=== PATIENT | male | born 1970 | race Caucasian/White ===

== ENCOUNTER → 2017-10-11 | Outpatient (CLI) | payer OTHER ==
[~2017-10-11] MED LIST: ACETAMINOPHEN325 M3 PO; ANORO ELLIPTA1 EACH INH; BACTROBAN CREAM30 G1 TOP; COLACE100 MG PO; DOXYCYCLINE 10100 MG PO; KEFLEX500 M1; MINOCYCLINE HC100 M2 PO; MIRALAX17 GM PO; NORCO 10-325 T1 EACH PO
== END ==
LOC: M.ULTRA 15:36
DX: R19.04 Left lower quadrant abdominal swelling, mass and lump (principal)

== ENCOUNTER 2017-12-02 19:53 | Inpatient (IN) | payer OTHER ==
[~2017-12-02] VITALS: Ht 182.9 cm; Wt 89.8 kg
[~2017-12-02 19:53] MED LIST changes: -ANORO ELLIPTA1 EACH INH; -DOXYCYCLINE 10100 MG PO; -KEFLEX500 M1
[2017-12-02 20:06] VITALS: BP 103/73
[2017-12-02] MEDS ORDERED: KEFLEX500 M1 (20:12)
[2017-12-02 21:05] LABS: ABSOLUTE BASOPHILS 0.1 thou/uL (0.0-0.2); ABSOLUTE LYMPHOCYTES 1.4 thou/uL (0.8-5.3); ABSOLUTE MONOCYTES 0.7 thou/uL (0.0-1.2); ABSOLUTE NEUTROPHILS 8.3 thou/uL (1.6-8.1); BASOPHILS 0.7 %; EOSINOPHILS 0.3 %; HEMATOCRIT 41.7 % (42.0-52.0); HEMOGLOBIN 14.4 gm/dL (14.0-18.0); LYMPHOCYTES 13.2 %; MCH 30.4 pg (26.0-34.0); MCHC 34.6 g/dL (28.0-37.0); MCV 87.9 fL (80.0-100.0); MONOCYTES 6.4 %; MPV 8.1 fl. (7.2-11.1); NUCLEATED RBCS 0 /100WBC; PLATELET COUNT* 170 thou/uL (150-400); POLYS 79.4 %; RBC 4.75 mil/uL (4.50-6.00); RDW-CV 16.2 % (10.5-14.5); WBC 10.5 thou/uL (4.0-11.0)
[2017-12-02 21:15] LABS: ANION GAP 10 mmol/L (7-16); BUN 14 mg/dL (7-18); CHLORIDE 99 mmol/L (98-107); CO2 23 mmol/L (21-32); CREATININE 1.3 mg/dL (0.6-1.3); GLUCOSE 121 mg/dL (70-99); INR 1.1; POTASSIUM 4.2 mmol/L (3.5-5.1); PROTIME 10.5 Seconds (9.20-11.50); SODIUM 132 mmol/L (136-145)
[2017-12-02 21:25] LABS: ALBUMIN 3.6 g/dL (3.4-5.0); ALKALINE PHOSPHATASE 82 U/L (46-116); LIPASE 116 U/L (73-393); NT-PRO BRAIN NAT PEPTIDE 115 pg/mL (<300); SGOT 34 U/L (15-37); SGPT 21 U/L (30-65); TOTAL BILIRUBIN 0.3 mg/dL (<0.1-1.0); TOTAL PROTEIN 7.2 g/dL (6.4-8.2); TROPONIN-I LEVEL <0.06 ng/mL (<0.06)
--- NOTE | 2017-12-02 22:38 | NUR ---
THIS NURSE DID NOTIFY DR. MCNAMARA THAT THE PATIENT WAS POSITIVE FOR SEPSIS SCREENING. INFORMED HE IS BEING ADMITTED FOR SEPSIS AND PNEUMONIA. WHEN ASKED FOR SEVERE SEPSIS INDICATED ON THE SEPSIS SCREENING TOOL, WAS INFORMED THAT THE FLOOR NURSE WOULD NEED TO SPEAK TO THE HOSPITALIST FOR THOSE ORDERS.
[2017-12-02 22:59] VITALS: BP 108/64
[2017-12-02 23:10] VITALS: BP 94/53
[2017-12-02] MEDS ORDERED: ANORO ELLIPTA1 EACH INH (23:36)
[2017-12-03 04:00] VITALS: BP 95/53
--- NOTE | 2017-12-03 05:26 | NUR ---
PT ADMITTED TO ROOM 207 FROM ER. PT MOVED SELF TO HOSPITAL BED. O2 2L BNC INTACT. TELEMETRY PACK APPLIED AND ALARMS SET. PT ORIENTED TO ROOM, CALL SYSTEM, BED CONTROLSAND TV CONTROLS. PT VERBALIZED GOOD UNDERSTANDING. TEMP DECREASED TO 99.0, PT STATED HE FELT SOME BETTER. PT BECOMES SOB WITH EXERTION. INSTRUCTED PT TO USE URINAL TONIGHT AND PT AGREED. VSS AND NO ACUTE CHANGES DURING SHIFT WILL CONTINUE TO MONITOR
[2017-12-03 08:16] VITALS: BP 97/61
[2017-12-03 15:35] VITALS: BP 98/57
--- NOTE | 2017-12-03 15:49 | NUR ---
Pt is A&O. Resides at home alone. Independent with ADLs, continues to work. No DME. Pt had HH arranged during last dc with [facility], but HH did not see Pt d/t not being homebound. No hx of SNF. Hx of outpt wound care. Pt's goal is to return home at dc. Following for disposition.
--- NOTE | 2017-12-03 17:06 | NUR ---
ASSUMED CARE OF PATIENT AFTER REPORT THIS MORNING. PATIENT AWAKE, ALERT, AND ORIENTED APPROPRIATELY. PHYSICAL ASSESSSMENT COMPLETED AND CHARTED. NO COMPLAINTS OF PAIN. GIVEN SCHEDULED MEDICATIONS, SEE EMAR FOR DOCUMENTATION. VITAL SIGNS STABLE. OXYGEN SATURATION WITHIN NORMAL LIMITS ON ROOM AIR. PATIENT TRANSFERS AND AMBULATES WITH ASSISTANCE FROM STAFF. USES CALL LIGHT APPROPRIATELY. DENIES NEEDS AT THIS TIME. CALL LIGHT WITHIN REACH. NURSING WILL CONTINUE TO MONITOR.
--- NOTE | 2017-12-03 17:18 | EKG ---
[place] [address] ELECTROCARDIOGRAM REPORT Name: JATIN CANELA Room: [address] ADM IN M.R.#: [id number] Admission: 12/02/17 Attend Phys: Musa Chapman MD Discharge: Date of : 72 Report #: [id number] THIS REPORT FOR: //name// [facility] ED Test Date: 2017-12-02 Test Time: 21:37:40 Pat Name: JATIN CANELA Department: Room: [facility] Gender: M Roving Tester Laboratory: JESSI : 1970 Requested By: Christ Shah Order Number: [id number] MD: Ilan Jewell Measurements Intervals Watkins Rate: 102 P: 53 MA: 144 QRS: -11 QRSD: 76 T: 31 QT: 314 QTc: 409 Interpretive Statements Sinus tachycardia Low voltage, extremity leads No previous ECG available for comparison Electronically Signed On 12-03-2017 17:18:17 CDT by Ilan Jewell [email or web address] <ELECTRONICALLY SIGNED> By: Ilan Jewell MD, [facility] 12/03/17 1718 2137 36 Ilan Jewell MD, FACC /EPI
[2017-12-03 19:15] VITALS: BP 95/57
[2017-12-04] VITALS: BP 101/57
[2017-12-04 04:53] LABS: ABSOLUTE EOSINOPHILS 0.1 thou/uL (0.0-0.7); ABSOLUTE LYMPHOCYTES 1.5 thou/uL (0.8-5.3); ABSOLUTE MONOCYTES 0.7 thou/uL (0.0-1.2); ABSOLUTE NEUTROPHILS 3.8 thou/uL (1.6-8.1); BASOPHILS 0.4 %; EOSINOPHILS 1.3 %; MCH 30.1 pg (26.0-34.0); MCHC 33.9 g/dL (28.0-37.0); MCV 88.8 fL (80.0-100.0); MONOCYTES 11.5 %; MPV 8.3 fl. (7.2-11.1); NUCLEATED RBCS 0 /100WBC; PLATELET COUNT* 123 thou/uL (150-400); POLYS 62.8 %; RDW-CV 16.2 % (10.5-14.5)
--- NOTE | 2017-12-04 04:53 | NUR ---
AAOX4 RESP REG AND UNLABORED SKIN W/D NO AUTE DITRESS NOTED. O2 2L BNC INTACT. PT STATES HE FEELS SOME BETTER TONIGHT. VSS AND NO ACUTE CHANGES DURIGN SHIFT. NO SIGNIFICANT FEVER NOTED THIS SHIFT. WILL CONITNUE TO MONITOR
[2017-12-04 05:04] LABS: HEMOGLOBIN 10.8 gm/dL (14.0-18.0)
[2017-12-04 05:05] LABS: CALCIUM 7.9 mg/dL (8.5-10.1); CREATININE 0.8 mg/dL (0.6-1.3); POTASSIUM 3.7 mmol/L (3.5-5.1)
[2017-12-04 08:25] VITALS: BP 106/64
--- NOTE | 2017-12-04 11:41 | NUR ---
ASSUMED CARE OF PATIENT AFTER REPORT THIS MORNING. PATIENT AWAKE, ALERT, AND ORIENTED APPROPRIATELY. PHYSICAL ASSESSMENT COMPLETED AND CHARTED. VITAL SIGNS STABLE. OXYGEN SATURATION WITHIN NORMAL LIMITS ON 2 LPM PER NASAL CANULA. GIVEN SCHEDULED MEDICATIONS, SEE EMAR FOR DOCUMENTATION. PATIENT IS UP WITH STANDBY ASSISTANCE. USES CALL LIGHT APPROPRIATELY. RECEIVED ORDERS TO TRANSFER PATIENT TO MED/SURG ROOM 106. REPORT CALLED AND GIVEN TO DONNA JAMISON. WILL GATHER BELONGINGS AND TRANSFER PATIENT SHORTLY. NURSING WILL CONTINUE TO MONITOR.
--- NOTE | 2017-12-04 12:00 | NUR ---
ASSUMED CARE OF PATIENT AT THIS TIME. AGREE WITH PREVIOUS ASSESSMENT. PATIENT DENIES PAIN. O2 AT 2L. IVF AND IVABX INFUSING ORDERED. PATIENT WISHES TO BE TO BE UP AD CHASITY. PATIENT APPEARS STEADY IN FEET. CALL LIGHT WITHIN REACH. WILL CONTINUE TO MONITOR.
--- NOTE | 2017-12-04 12:09 | NUR ---
TRANSFERRED PATIENT TO ROOM 106 AT 1200. BELONGINGS AND CHART TAKEN WITH PATIENT.
[2017-12-04 15:53] VITALS: BP 100/65
--- NOTE | 2017-12-04 16:34 | NUR ---
PATIENT REMAINS ALERT AND ORIENTED. DENIES PAIN. REPORTS IMPROVEMENT IN SOB WITH EXERTION. O2 REMAINS AT 2L, SAT 954%. TOLERATING MEALS. BM THIS AFTERNOON. UP AD CHASITY. IVF INFUSING ORDERED. AFEBRILE. DENIES FURTHER NEEDS AT THIS TIME. CALL LIGHT WITHIN REACH. WILL CONTINUE TO MONITOR.
--- NOTE | 2017-12-04 20:18 | CON ---
[address] [address] CONSULTATION Name: JATIN CANELA Room: [address] IN ..#: [id number] Admission: 12/02/17 Attend Phys: Musa Chapman MD Discharge: Date of : 72 Report #: [id number] THIS REPORT FOR: //name// CC: Musa Booker DATE OF SERVICE: 12/03/2017 CONSULTATION: Infectious diseases. HISTORY OF PRESENT ILLNESS: The patient is a 47-year-old white male who has a history of MRSA furuncle in 2016. He has had developing a follicular type lesion in his left inguinal area. About a week ago, he saw Dr. Vigil who did an incision and drainage and culture. He was given an antibiotic. The patient thought the antibiotic was not helping, so he had the antibiotic changed. Beginning around 12/02, The patient started having fevers and chills. He measured temperature at home of 104.7. He was having shaking chills and rigors. He had been developing back pain for the last 4 to 5 days. This was a diffuse discomfort throughout the spine and radiating on both sides of the sacrum. The patient presented to the hospital where temperature of 103 was documented. He was admitted to the hospital and started on antibiotic. Infectious disease consultation was requested. PAST MEDICAL HISTORY: Significant for previous MRSA infection. The patient has history of COPD associated with tobacco overuse. He has a history allergy to PENICILLIN and SULFA. FAMILY HISTORY: Noncontributory. SOCIAL HISTORY: The patient is . He lives by himself. He does smoke cigarettes about a pack and a half per day. Denies use of significant alcohol. He works doing sales mostly at a desk. REVIEW OF SYSTEMS: GENERAL: Fevers, chills, and sweats for 24 hours. ENT: No headache, sinus congestion, cognitive dysfunction. The patient denies trouble with his eyes, ears or nose. No sore throat or trouble swallowing. No dental complaints. NECK: The patient denies any pain in his neck. BACK: He has the diffuse back pain. The patient has a cough with some dyspnea with exertion. CARDIOVASCULAR: No chest pain. He denies angina, syncope, palpitations. GASTROINTESTINAL: The patient denies nausea, vomiting or abdominal pain. He notes he has not had a BM for about 3 days. His bowel is a [place]ended, [place] [address] CONSULTATION Name: JATIN CANELA Room: [address]#: [id number] Admission: 12/02/17 Attend Phys: Musa Chapman MD Discharge: Date of : 72 Report #: [id number] not tender. GENITOURINARY: No complaints. EXTREMITIES: No complaints. The area that Dr. Vigil resected and drained has not really caused him any problems at that site. PHYSICAL EXAMINATION: GENERAL: The patient appears his stated age, alert, oriented, comfortable, not in any distress. VITAL SIGNS: Show temperature tonight was measured 99.4, in the ER measured 103 last night. SKIN: Shows healing area on his left groin. It is re-epithelialized without any drainage. There is no surrounding cellulitis nor fluctuance. ENT: Negative. MENTAL STATUS: Normal. NECK: Supple. CARDIOVASCULAR: Heart sounds S1, S2, without murmur. LUNGS: Clear. ABDOMEN: Belly soft, not tender, without mass, no organomegaly. EXTREMITIES: Unremarkable. LABORATORY DATA: White count is 10.5, hemoglobin 14.4. Electrolytes normal. BUN 14, creatinine 1.3. Liver function tests are normal. IMAGING DATA: MRI of the back was done. It showed unusual diffuse areas of inconsistency with irregular peripherally-enhancing lesions in the lumbar and thoracic spine. The radiologist was concerned this could represent multifocal bone marrow abscesses. IMPRESSION: High fever with abnormal bone marrow scan and history of Methicillin-resistant Staphylococcus aureus. I would like to have Dr. Vigil review the surgical site and relay the results of the surgical cultures. We will continue the vancomycin and Levaquin pending results of blood cultures. I have not seen the MRI images, but the description sounds very unusual for abscesses. Particularly, in the patient who was basically healthy a week ago, it would be rather surprising to have multiple bone marrow abscesses in the thoracic and lumbar spine. If this continues to be concern, we would consider a bone marrow biopsy. It is possible that there might be a lesion in the iliac wing that would be amenable to percutaneous aspiration and histopathology. I would like to check an HIV just because this would be a very unusual presentation for infection. We will await results of cultures of the blood. The chest x-ray showed increased basilar markings suggesting possible acute interstitial pneumonitis. We should do a followup film tomorrow for this as well. [address] [address] CONSULTATION Name: JATIN CANELA Room: M.106-P ADM IN M.R.#: [id number] Admission: 12/02/17 Attend Phys: Musa Chapman MD Discharge: Date of : 72 Report #: [id number] I will continue the vancomycin and Levaquin. Await results of cultures. We will consider doing bone marrow biopsy. <ELECTRONICALLY SIGNED> By: Jatin Valdez MD 12/04/172017 2251 [id number] Valdez MD /nt
[2017-12-04 21:15] VITALS: BP 102/63
--- NOTE | 2017-12-05 06:08 | NUR ---
PATIENT ALERT AND ORIENTED X 4. VITALS STABLE. ON 2L OF OXYGEN. STATES HE DOESNT FEEL SHORT OF BREATH WITH AMBULATION. FLUIDS INFUSING PER ORDER. VOIDING PER URINAL. NPO. HOURLY ROUNDS. NURSING WILL CONTINUE TO MONITOR.
[2017-12-05 07:17] VITALS: BP 102/63
[2017-12-05 08:22] VITALS: BP 107/57
[2017-12-05 10:37] LABS: ANISOCYTOSIS 1+; PLATELET ESTIMATE ADEQUATE; POIKILOCYTOSIS 1+
[2017-12-05 17:02] VITALS: BP 112/60
--- NOTE | 2017-12-05 19:01 | NUR ---
PT VSS THIS SHIFT. PT WALKING THE HALLS THIS SHIFT AND TOLERATING RA. PT WENT FOR BIOPSY, MULTIPLE ATTEMPTS. TRANSPARENT DRESSING IS CDI AT THIS TIME, 2 SITES ARE VISIBLE. PT TOLERATING DIET AT THIS TIME AND ABLE TO AMBULATE AD CHASITY.
[2017-12-05 20:45] VITALS: BP 119/71
[2017-12-06 05:09] LABS: ABSOLUTE EOSINOPHILS 0.2 thou/uL (0.0-0.7); ABSOLUTE LYMPHOCYTES 1.7 thou/uL (0.8-5.3); ABSOLUTE MONOCYTES 0.7 thou/uL (0.0-1.2); ABSOLUTE NEUTROPHILS 2.8 thou/uL (1.6-8.1); BASOPHILS 0.5 %; EOSINOPHILS 3.3 %; HEMATOCRIT 34.2 % (42.0-52.0); HEMOGLOBIN 11.5 gm/dL (14.0-18.0); LYMPHOCYTES 31.4 %; MCH 29.7 pg (26.0-34.0); MCHC 33.4 g/dL (28.0-37.0); MONOCYTES 13.2 %; MPV 7.8 fl. (7.2-11.1); NUCLEATED RBCS 1 /100WBC; PLATELET COUNT* 163 thou/uL (150-400); POLYS 51.6 %; RBC 3.85 mil/uL (4.50-6.00); RDW-CV 16.2 % (10.5-14.5); WBC 5.4 thou/uL (4.0-11.0)
--- NOTE | 2017-12-06 05:56 | NUR ---
PATIENT ALERT AND ORIENTED X 4. VITALS STABLE. RA. UP INDEPENDENTLY. PAIN CONTROLLED WITH PO MEDICATION. PROGRESSING WELL TOWARD DISCHARGE GOALS. FLUIDS INFUSING PER ORDER. HOURLY ROUNDS. NURSING WILL CONTINUE TO MONITOR.
[2017-12-06 08:00] VITALS: BP 98/62
[2017-12-06] MEDS ORDERED: DOXYCYCLINE 10100 MG PO (14:02)
[2017-12-06 14:10] VITALS: BP 98/62
--- NOTE | 2017-12-06 15:05 | NUR ---
PATIENT DISCHARGED TO HOME. DISCHARGE PAPERS REVIEWED AND SIGNED. PRESCRIPTION CALLED TO PHARMACY AND INFORMATION SHEETS GIVEN. IV REMOVED. DEMETRICE INSTRUCTED TO FOLLOW-UP FOR BIOPSY RESULTS. PATIENT DENIES ANY FURTHER NEEDS. PATIENT TAKEN AMBULATORY TO EXIT. LEFT BY OWN VEHICLE.
--- NOTE | 2017-12-25 09:14 | PATH ---
[address] [address] PATHOLOGY RPT PROCEDURE Name: JATIN NAPIER Room: [address] IN M.R.#: [id number] Admission: 12/02/17 Date of : 72 Discharge: 12/06/17 Report #: [id number] Path Case #: [id number] [facility] Accession Number: [id number] . 01 Material submitted: . PART A: BONE MARROW BIOPSY PART B: BONE MARROW ASPRIATE SLIDES PART C: PERIPHERAL SMEAR . 01 Clinician provided ICD-10: 324.1 . 01 Clinical history: . 47-year-old man with anemia, thrombocytopenia and sepsis. . 02 Diagnosis: Bone marrow aspirate, biopsy, cell clot and peripheral blood: - Peripheral blood with mild normocytic anemia and mild thrombocytopenia. - Hypercellular bone marrow with diffuse small mature lymphoid population and decreased trilineage hematopoiesis (see comment). [facility]/12/12/2017 . 02 Comment: Overall the bone marrow is hypercellular for the patient's age with a diffuse small mature lymphoid population and decreased trilineage hematopoiesis. The lymphoid cells are predominantly T-cells with no atypical morphologic findings or immunophenotypic aberrancies. There is no diagnostic evidence of lymphoma or a lymphoproliferative process. Bone marrow lymphoid aggregates can be seen with collagen vascular diseases, other immune or inflammatory disorders, drug therapy and infections (primarily viral). Lymphoid aggregates can also be seen in patients with myelodysplasia and chronic myeloproliferative neoplasms. This small bone marrow core biopsy may not be sales representative public [employer] of the overall bone marrow. The case is co-reviewed with Dr. Andreina Elizabeth. (CLW:nolan 12/12/2017) . 02 Electronically signed: . Yu Borjas MD, Pathologist NPI- [id number] . 01 Gross description: . Received in formalin labeled "Jatin Napier BM core," is a single needle core of loving bone measuring 0.7 cm in length and 0.2 cm in diameter. The specimen is submitted entirely in cassette A1, following decalcification. (TSD; 12/05/2017) TOB/TOB . 02 Microscopic: [place] [address] PATHOLOGY RPT PROCEDURE Name: JATIN NAPIER Room: [address] IN M.R.#: [id number] Admission: 12/02/17 Date of : 72 Discharge: 12/06/17 Report #: [id number] Path Case #: [id number] CBC Data (12/05/17): WBC 6,000 /uL, RBC 3.60, hemoglobin 10.8 g/dL, hematocrit 32.0%, MCV 88.8 fL, MCH 30.1 pg, MCHC 33.9 g/dL, RDW 16.2%, and platelet count 123,000 /uL. White blood cell differential: segs 58%, bands 1%, lymphs 30%, monos 9%, and eos 2%. . Peripheral Blood Smear: Cytomorphological examination of the Bañuelos's stained peripheral blood smear confirms the provided data. Red blood cells show mild normocytic anemia with no significant anisopoikilocytosis. White blood cells are predominantly segmented neutrophils with mild reactive changes. There is no significant dyspoiesis or significant left shift. Lymphocytes are predominantly small, round, and mature appearing with condensed chromatin and scant cytoplasm with admixed large granular lymphocytes. On scanning, no markedly atypical lymphoid cells are seen. Monocytes are mature. Platelets are adequate (mildly decreased) in number and mainly normal in morphology with rare larger platelets noted. . Aspirate Smears: Cytomorphological examination of the Bañuelos's stained aspirate smears shows predominantly blood and peripheral blood elements. A small possible spicule composed predominantly of histiocytes is noted. . Cytomorphological examination of the Bañuelos's stained touch imprints show predominantly small round and mature appearing lymphocytes with condensed chromatin and scant cytoplasm. Only very rare other hematopoietic progenitor cells are identified. . Core Biopsy: The decalcified bone marrow core biopsy is small but adequate. Significant aspiration artifact is noted. The bone marrow appears hypercellular with an overall cellularity of 90-100%. Trilineage hematopoiesis is markedly decreased. The bone marrow is replaced by lymphoid aggregates showing significant crush artifact. The lymphocytes appear mature with condensed chromatin and scant cytoplasm. The myeloid to erythroid ratio, myeloid maturation and erythroid maturation cannot be accurately evaluated. No markedly atypical lymphoid cells are seen. Hui trabeculae and blood vessels are unremarkable. . To confirm the flow cytometry findings and to identify cells in a tissue architectural context, properly controlled immunohistochemical stains and special stains are performed. . Block A1 CD3 - lymphocytes diffusely reactive CD20 - stains occasional admixed B cells PAX5 - stains occasional admixed B cells CD30 - essentially nonreactive CD5 - diffusely reactive CD4 - normal CD4/8 [place] [address] PATHOLOGY RPT PROCEDURE Name: JATIN NAPIER Room: [facility] IN M.R.#: [id number] Admission: 12/02/17 Date of : 72 Discharge: 12/06/17 Report #: [id number] Path Case #: [id number] CD8 - normal CD4/8 ratio CD7 - diffusely reactive, no loss of staining CD99 - essentially nonreactive CD34 - essentially nonreactive CD117 - essentially nonreactive MPO - stains only scattered cells Glycophorin A - stains only scattered nucleated cells CD10 - highlights background stroma CD1A - essentially nonreactive CD68 - stains scattered histiocytes CD31 - no obvious megakaryocytes identified CD138 - stains a rare plasma cell CD56 - essentially nonreactive Ball and lambda in situ hybridization - no clonal population identified Iron - 0/4+ iron positivity Reticulin - mildly increased reticulin fibrosis within the lymphoid aggregates . Flow Cytometry: Flow cytometric immunophenotypic analysis was performed at [facility]. 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 Of the lymphocytes, there are 95% T-cells with a CD4/CD8 ratio of 3.1 and no aberrant T-cell antigen expression and 3% polyclonal B-cells (kappa lambda ratio of 1.7). There are 16.4% granulocytes which show phenotypic evidence of maturation. There are 0.1% CD34 positive cells (blasts) and no precursor B cells detected. No plasma cells are identified. No immunophenotypic evidence of a lymphoproliferative disorder, acute leukemia, increase in blasts, or plasma cells neoplasm is identified. Myeloid cells are markedly decreased in proportion, uncharacteristic for the specimen type; the significance of this finding is unclear based on this study. Please see separate flow cytometry report from [facility] ([id number]). . Cytogenetics Analysis: Cytogenetic chromosomal analysis was attempted at [facility]. No metaphase cells are available for analysis. Cultures set up from the submitted sample failed to yield any metaphase cells. Please see separate cytogenetics report from [facility] ([id number]). (CLW:pit 12/12/2017) . 02 Pathologist provided ICD-10: D64.9, D69.6 . 02 CPT . 245238, 378878, 199789, 471685, S55774, K53626, I76793, O75964, 109062 Performed at: 01 [place] [address] PATHOLOGY RPT PROCEDURE Name: JATIN NAPIER Room: [address] IN [facility].#: [id number] Admission: 12/02/17 Date of : 72 Discharge: 12/06/17 Report #: [id number] Path Case #: [id number] [address] [facility] [address], [place] [id number] MD Dayday Delgadillo MD Phone: [phone] Performed at: [address], [place], [place] [id number] MD Jamie Garcia MD Phone: [phone]
== END 2017-12-06 15:05 | disposition home or self-care (01) | DRG 871 ==
LOC: M.ERS 19:53 → M.2W 21:39 → M.TBA-ER 21:39 → M.2W 23:15 → M.ORTHSURG 12-04 11:41
PROVIDERS: Family Medicine; Internal Medicine; Internal Medicine Infectious Disease; ADMIT Internal Medicine
PROC: BR1C1ZZ Fluoroscopy of Pelvis using Low Osmolar Contrast (ICD-10-PCS; principal; 2017-12-05)
PROC: 07DR3ZX Extraction of Iliac Bone Marrow, Percutaneous Approach, Diagnostic (ICD-10-PCS; principal; 2017-12-05)
DX: A41.9 Sepsis, unspecified organism (principal); J15.6 Pneumonia due to other Gram-negative bacteria; J96.00 Acute respiratory failure, unspecified whether with hypoxia or hypercapnia; E87.1 Hypo-osmolality and hyponatremia; J44.0 Chronic obstructive pulmonary disease with (acute) lower respiratory infection; M54.9 Dorsalgia, unspecified; F17.210 Nicotine dependence, cigarettes, uncomplicated; Z86.14 Personal history of Methicillin resistant Staphylococcus aureus infection; Z88.0 Allergy status to penicillin; Z88.2 Allergy status to sulfonamides; Z79.2 Long term (current) use of antibiotics; Z79.899 Other long term (current) drug therapy

== ENCOUNTER → 2018-01-17 | Outpatient (CLI) | payer OTHER ==
[~2018-01-17] MED LIST changes: +ANORO ELLIPTA1 EACH INH; +DOXYCYCLINE 10100 MG PO; +KEFLEX500 M1
== END ==
LOC: M.RAD 11:45
DX: J98.8 Other specified respiratory disorders (principal); J44.9 Chronic obstructive pulmonary disease, unspecified; Z87.891 Personal history of nicotine dependence

== ENCOUNTER → 2018-04-09 | Outpatient (CLI) | payer OTHER | LOC: M.MRI 15:45 | DX: M51.26 Other intervertebral disc displacement, lumbar region (principal); G95.9 Disease of spinal cord, unspecified; A41.9 Sepsis, unspecified organism ==

== ENCOUNTER → 2018-05-07 | Outpatient (CLI) | payer OTHER ==
--- NOTE | 2018-05-07 16:08 | 2DMMODE ---
[place] [address] 2 D/M-MODE ECHOCARDIOGRAM Name: JATIN CANELA Room: [employer]#: [id number] Admission: 05/07/18 Attend Phys: Jordyn Taylor, Discharge: Date of : 72 Date of Service: 05/07/18 1608 Report #: [id number] THIS REPORT FOR: //name// APPROVED REPORT Study performed: 05/07/2018 15:27:51 EXAM: Comprehensive 2D, Doppler, and color-flow Echocardiogram Patient Location: Out-Patient Status: routine BSA: 2.06 HR: 87 bpm BP: 140/78 mmHg Other Information Study Quality: Excellent Indications Chemo 2D Dimensions IVSd: 10.52 (7-11mm) LVOT Diam: 20.71 (18-24mm) LVDd: 44.89 mm PWd: 10.15 (7-11mm) Ascending Ao: 30.54 (22-36mm) LVDs: 18.31 (25-40mm) Aortic Root: 31.74 mm Volumes Left Atrial Volume (Systole) LA ESV Index: 20.30 mL/m2 Aortic Valve AoV Peak Abhilash.: 1.11 m/s AO Peak Gr.: 4.95 mmHg LVOT Max P.28 mmHg AO Mean Gr.: 2.71 mmHg LVOT Mean P.54 mmHg LVOT Max V: 1.15 m/s AO V2 VTI: 17.63 cm LVOT Mean V: 0.73 m/s RUBIA (VTI): 3.49 cm2 LVOT V1 VTI: 18.27 cm Mitral Valve E/A Ratio: 1.32 MV Decel. Time: 138.82 ms MV E Max Abhilash.: 0.60 m/s MV PHT: 40.26 [place] [address] 2 D/M-MODE ECHOCARDIOGRAM Name: JATIN CANELA Room: [employer]#: [id number] Admission: 05/07/18 Attend Phys: Jordyn Taylor, Discharge: Date of : 72 Date of Service: 05/07/18 1608 Report #: [id number] MVA (PHT): 5.46 cm2 TDI E/Lateral E': 4.29 E/Medial E': 4.62 Medial E' Abhilash.: 0.13 m/s Lateral E' Abhilash.: 0.14 m/s Pulmonary Valve PV Peak Abhilash.: 1.42 m/s PV Peak Gr.: 8.08 mmHg Tricuspid Valve RAP Estimate: 5.00 mmHg TR Peak Gr.: 24.38 mmHg RVSP: 29.38 mmHg PA Pressure: 29.38 mmHg Left Ventricle The left ventricle is normal size. There is normal LV segmental wall motion. There is normal left ventricular wall thickness. Left ventricular systolic function is normal. The left ventricular ejection fraction is within the normal range. LVEF is 55-60%. The left ventricular diastolic function is normal. Right Ventricle The right ventricle is normal size. The right ventricular systolic function is normal. Atria The left atrium size is normal. The right atrium size is normal. Aortic Valve The aortic valve is normal in structure. No aortic regurgitation is present. There is no aortic valvular stenosis. Mitral Valve The mitral valve is normal in structure. There is no mitral valve regurgitation noted. No evidence of mitral valve stenosis. Tricuspid Valve The tricuspid valve is normal in structure. Mild tricuspid regurgitation. estimated pa pressure 30 mm Hg Pulmonic Valve The pulmonary valve is normal in structure. [place] [address] 2 D/M-MODE ECHOCARDIOGRAM Name: HILTONJATIN Larsen Room: [employer]#: [id number] Admission: 05/07/18 Attend Phys: Jordyn Taylor, Discharge: Date of : 72 Date of Service: 05/07/18 1608 Report #: [id number] Great Vessels The aortic root is normal in size. IVC is normal in size and collapses >50% with inspiration. Pericardium There is no pericardial effusion. <Conclusion> Left ventricular systolic function is normal. The left ventricular ejection fraction is within the normal range. <ELECTRONICALLY SIGNED> By: Brian Colorado MD, [facility] 05/07/18 1608 1608 1608 Brian Colorado MD, FAC /INF
== END ==
LOC: M.CRD 14:30
DX: Z51.11 Encounter for antineoplastic chemotherapy (principal); I37.1 Nonrheumatic pulmonary valve insufficiency; I07.1 Rheumatic tricuspid insufficiency; C85.93 Non-Hodgkin lymphoma, unspecified, intra-abdominal lymph nodes